=== PATIENT | male | born 1965 | race Native Hawaiian/Other Pacific Islander ===

== ENCOUNTER 2021-12-17 08:53 | Outpatient (CLI) | payer BC | END 2021-12-17 21:09 | disposition home or self-care (01) | LOC: RAD 08:53 | PROVIDERS: ATTEND Internal Medicine | DX: M79.641 Pain in right hand (principal); M79.642 Pain in left hand; M79.671 Pain in right foot; M79.672 Pain in left foot ==

== ENCOUNTER 2023-03-20 10:16 | Outpatient (CLI) | payer BC | END 2023-03-20 21:24 | disposition home or self-care (01) | LOC: RAD 10:16 | PROVIDERS: ATTEND Internal Medicine | DX: M25.562 Pain in left knee (principal); M25.561 Pain in right knee; M79.672 Pain in left foot; M79.671 Pain in right foot ==